=== PATIENT | female | born 1975 | race Caucasian/White ===

== ENCOUNTER 2018-07-30 18:05 | Emergency (ER) | payer BC ==
[~2018-07-30] VITALS: Ht 167.6 cm; Wt 60.5 kg
[2018-07-30 19:01] LABS: ANION GAP 13 mmol/L (5-15); CHLORIDE 106 mmol/L (98-107)
[2018-07-30 19:03] LABS: CREATININE 0.38 mg/dL (0.55-1.02)
[2018-07-30 19:18] LABS: MD YES; MEAN CORPUSCULAR HEMOGLOBIN 32.5 pg (27.0-34.8); MEAN CORPUSCULAR HGB CONC 34.8 g/dL (32.4-35.8); MEAN CORPUSCULAR VOLUME 93.6 fL (80-100); MEAN PLATELET VOLUME 7.7 fL (7.4-10.4); PLATELET COUNT 65 x10^3/uL (130-400); RED BLOOD COUNT 2.25 x10^6/uL (3.82-5.3); RED CELL DISTRIBUTION WIDTH 21.3 % (9.6-15.2)
[2018-07-30 19:23] LABS: BAND#(MANUAL) 0.34 x10^3/uL; BANDS%(MANUAL) 8 % (0-7); BASOS#(MANUAL) 0.04 x10^3/uL (0-0.1); BASOS% (MANUAL) 1 % (0-1); EOS#(MANUAL) 0.04 x10^3/uL (0.0-0.4); EOS% (MANUAL) 1 % (1-7); LYMPH#(MANUAL) 0.43 x10^3/uL (1-3.4); LYMPHS% (MANUAL) 10 % (22-44); METAMYELOCYTES# (MANUAL) 0.13 x10^3/uL (0-0); METAMYELOCYTES% (MANUAL) 3 % (0-1); MONOS#(MANUAL) 0.43 x10^3/uL (0.3-2.7); MONOS% (MANUAL) 10 % (2-9); SEG#(MANUAL) 2.88 x10^3/uL (1.8-6.8); SEGS% (MANUAL) 67 % (42-75)
[2018-07-30 19:24] LABS: <PLATELET ESTIMATE> DECREASED; <PLT MORPHOLOGY> NORMAL PLT MORPH; ANISOCYTOSIS 1+; TOXIC GRAN 1+
[2018-07-30 21:01] VITALS: BP 105/72
[2018-07-30 23:16] VITALS: BP 115/79
[2018-07-30 23:30] VITALS: BP 115/79
[2018-07-30 23:46] VITALS: BP 102/56
[2018-07-31 00:24] VITALS: BP 118/80
[2018-07-31 00:25] VITALS: BP 118/80
== END 2018-07-31 00:42 | disposition home or self-care (01) ==
LOC: ED 19:33
DX: D64.81 Anemia due to antineoplastic chemotherapy (principal); D63.0 Anemia in neoplastic disease
CPT/HCPCS: 36415; 36430; 80048; 85025; 86850; 86870; 86900; 86902; 86922; 99285; P9040; 86923